=== PATIENT | male | born 1980 | race Caucasian/White ===

== ENCOUNTER → 2016-05-20 | Day surgery (SDC) | payer OTHER ==
[2016-05-15 08:13] VITALS: Ht 182.9 cm; Wt 110.0 kg
[~2016-05-20] VITALS: Ht 182.9 cm; Wt 110.0 kg
[~2016-05-20] MED LIST: ACETAMINOPHEN/CODEINE 300/30MG TAB PO PRN; ASPI325T45 PO; ATROPINE SULFATE 0.1 MG/ML 5ML SYR IV PRN; BUPIVACAINE 0.5 % 5 MG/1 ML MPF 30ML VIAL ONE; CLINDAMYCIN PHOS 150 MG/ML 2 ML VIAL IV SCH; DEXAMETHASONE SOD INJ 4 MG/ML VIAL ONE; EpHEDrine SULFATE INJ 50 MG/ML AMP IV PRN; FENTANYL CITRATE INJ 50 MCG/1 ML 2 ML VIAL ONE; HYDR-5688 PO; LACTATED RINGER'S 1000ML 1,000 ML IV SCH; LIDOCAINE HCL 1% 20 ML VIAL ONE; LIDOCAINE HCL 2% 2 ML VIAL (20MG/ML) ONE; METOCLOPRAMIDE HCL INJ 5 MG/ML 2 ML VIAL IV PRN; MIDAZOLAM HCL 1 MG/ML 2ML VIAL ONE; MoRPHine SULFATE 4 MG/ML 1 ML CARP\\VIAL IV PRN; OMEGCAP2 PO; ONDANSETRON INJ 2 MG/ML 2 ML VIAL IV PRN; ONDANSETRON INJ 2 MG/ML 2 ML VIAL ONE; OXYCODONE/ACETAMINOPHEN 5-325 TAB PO PRN; PROPOFOL IV EMULSION 10 MG/ML 20 ML VIAL IV ONE; SODIUM CHLORIDE 0.9% 1000ML 1,000 ML IV SCH
--- NOTE | 2016-05-20 09:21 | History & Physical Bridge - [place] ---
H&P Re-Evaluation Bridge Note: I have examined the patient, reviewed the History & Physical and in the interval since the performance of the History & Physical I have noted the following changes of clinical significance: No changes noted
--- NOTE | 2016-05-20 10:27 | Discharge Instructions-SurgCtr ---
Discharge Instructions Visit Reason for Visit: Retained Hardware Left Index Finger Discharge Discharge Diagnosis / Problem: Hardware removal left index finger Discharge Goals Goal(s): Decrease discomfort, Improve function, Increase independence Activity Recommendations Activity Limitations: as noted below Lifting Limitations: none (with left hand) Exercise/Sports Limitations: until after follow-up appointment May Resume Sexual Activity: when tolerated Shower/Bathe: keep incision dry Driving or Machine Use: when no longer using narcotic pain medication Anesthesia . Post Anesthesia Instructions: If you have had General Anesthesia or IV Sedation: * Do not drive today. * Resume driving when surgeon permits. * Do not make important decisions or sign legal documents today. * Call surgeon for: 1. Temperature elevations greater than 101 degrees F. 2. Uncontrollable pain. 3. Excessive bleeding. 4. Persistent nausea and vomiting. 5. Medication intolerance (nausea, vomiting or rash). * For nausea and vomiting use only clear liquids such as: tea, soda, bouillon until nausea subsides, then gradually increase diet as tolerated. * If you have any concerns or questions, call your surgeon's office. If physician is unavailable and it is an emergency, call 911 or go to the nearest emergency room. . Instructions / Follow-Up Instructions / Follow-Up DIET: * Resume previous diet. MEDICATIONS: * Please take your prescriptions as instructed at your pre-op appointment and/ or see medication discharge instructions listed above. * If concerns develop, call your physician's office at . SPECIAL CARE INSTRUCTIONS: * Ice/Elevate as instructed. * Keep dressing clean, dry, intact. * Your surgical extremity may be discolored due to prepping agents used on the skin. A bluish-green tint is a normal variant and should not cause alarm. Call your doctor at [phone] if: * Temperature above 101 degrees * Pain not relieved by pain medicine ordered * There is increased drainage or redness from any incision * You have any unanswered questions, problems or concerns. FOLLOW UP VISIT: * If not already scheduled, please call the office at to schedule a follow-up appointment. Diet Recommendations Home Diet: resume previous diet Procedures Procedures Performed: Left Index Finger Open Hardware Removal Pending Studies Studies pending at discharge: no Medical Emergencies . Who to Call and When: Medical Emergencies: If at any time you feel your situation is an emergency, please call 911 immediately. . Non-Emergent Contact Non-Emergency issues call your: Primary Care Provider . . "Provider Documentation" section prepared by Kaiden Gacria. [place] Drug Monitoring Program Search Results: no issues identified
--- NOTE | 2016-05-20 10:29 | [facility] Post Operative Brief Note ---
Immediate Operative Summary Operative Date May 20, 2016. Pre-Operative Diagnosis Retained Hardware Left Index Finger Post-Operative Diagnosis Same Procedure(s) Performed Left Index Finger Open Hardware Removal Surgeon Dr. Oswaldo Ding Hand Stripper Surgeon(s) Dr. Grover Garcia Findings same Specimens None Drains none Anesthesia general Complication(s) None Disposition Recovery Room / PACU
[2016-05-20] MEDS: FENTANYL CITRATE INJ 50 MCG/1 ML 2 ML VIAL IV PRN ×3 (11:28→11:49)
--- NOTE | 2016-05-20 12:04 | Anesthesia Progress Nt - [facility] ---
Anesthesia Post Op Note Date & Time May 20, 2016 at 12:05 Vital Signs Pain Intensity: 6 Vital Signs Past 12 Hours Date Time Temp Pulse Resp B/P Pulse Ox O2 Delivery O2 Flow Rate FiO2 05/20/16 11:54 77 13 05/20/16 11:54 81 13 142/102 98 05/20/16 11:49 66 13 05/20/16 11:49 66 13 148/87 94 05/20/16 11:44 73 18 127/85 95 05/20/16 11:44 73 18 05/20/16 11:39 68 10 05/20/16 11:39 66 10 133/90 100 05/20/16 11:34 67 7 141/89 100 05/20/16 11:34 74 7 05/20/16 11:29 75 10 05/20/16 11:29 69 10 133/91 100 05/20/16 11:24 105 14 05/20/16 11:24 105 14 132/88 98 05/20/16 11:19 68 15 115/66 96 05/20/16 11:19 67 15 05/20/16 11:14 36.7 68 16 125/ 98 Mask 10 05/20/16 11:14 71 17 05/20/16 11:14 70 17 120/74 97 05/20/16 08:35 36.8 93 18 164/100 97 Room Air Notes Mental Status: alert / awake / arousable, participated in evaluation Pt Amnestic to Procedure: Yes Nausea / Vomiting: adequately controlled Pain: adequately controlled Airway Patency, RR, SpO2: stable & adequate BP & HR: stable & adequate Hydration State: stable & adequate Anesthetic Complications: no major complications apparent
[2016-05-20 12:12] VITALS: TEMP 36.7
[2016-05-20 12:49] VITALS: BP 119/72; PULSE 52; O2SAT 96
--- NOTE | 2016-05-20 13:25 | [facility] Post Operative Brief Note ---
Immediate Operative Summary Operative Date May 20, 2016. Pre-Operative Diagnosis Retained Hardware Left Index Finger Post-Operative Diagnosis Same Procedure(s) Performed Left Index Finger Open Hardware Removal Surgeon Dr. Oswaldo Ding Bolt Threader Surgeon(s) Dr. Grover Garcia Estimated Blood Loss 15 CC Specimens None Complication(s) None Disposition PCU
--- NOTE | 2016-05-20 16:43 | [facility] Operative Report ---
Operative Report Operative Date May 20, 2016. Pre-Operative Diagnosis Retained Hardware Left Index Finger Post-Operative Diagnosis Same Procedure(s) Performed Left Index Finger Open Hardware Removal Surgeon Dr. Oswaldo Ding Paper Sales Representative Surgeon(s) Dr. Grover Garcia Estimated Blood Loss 15 CC Findings Retained hardware left index finger Specimens None Drains n/a Anesthesia LMA Complication(s) None Disposition Recovery Room / PACU (stable) Implants n/a Indications The patient is a 35 yo male with a history of previous left index finger open reduction internal fixation, with painful retained hardware. The patient understands the risks of surgery, which include but are not limited to: bleeding , infection, re-operation, damage to nerves and arteries, continued pain, being unable to remove all of the hardware, and fracture. The patient understands all of these instructions and explanations, all of their questions have been satisfactorily addressed. The patient has elected to proceed with surgery and the informed consent was signed. Description of Procedure The patient was taken to the Operating Room and placed in the supine position on the operating table. After general anesthetic was administered a multidisciplinary time-out was performed identifying my initials on the left index finger as the correct and operative limb. Prior to any incisions, 600 mg of intravenous clindamycin was given. The left upper extremity was prepped and draped in the usual Orthopaedic sterile fashion. The patient's previous incision along dorsum of the left index finger was marked. The skin edges were injected with a 50:50 mixture of 1% lidocaine and 0.5 % Marcaine plain as well as performing a digital block in the standard fashion for a total of 8 cc. the skin incision was carried down to the extensor mechanism and medial and lateral flaps created. An incision was made radial to the extensor tendon and carried down to the proximal phalanx and the plate. The plate was further exposed with a [place]. The appropriate screwdriver was used to remove all the screws through the incision except for the most ulnar which a small stab through the extensor expansion. The plate was easily elevated and removed. Any scar tissue overlying the rock small phalanx was debrided with a small rongeur. The wound was copiously irrigated with normal saline. Hemostasis was obtained with electrocautery and compression. The skin were closed with 3-0 nylon in horizontal mattress fashion. The limb was cleaned and dried. The wound was covered Xerofoam, 4 x 4's, ABDs, sterile Rossy evelyn taping to the middle finger, and [place] and. The sponge and needle counts were correct. POST-OP: The patient will follow-up with Dr. Ding in 10-15 days. The patient was given pain medicine. He will not get the wound wet for 3 days. They will start hand therapy in 2-3 days. I attest to the content of the Intraoperative Record and any orders documented therein. Any exceptions are noted below.
== END | disposition home or self-care (01) ==
LOC: X.SURG 08:21
PROVIDERS: ATTEND Orthopaedic Surgery Sports Medicine
DX: T84.84XA Pain due to internal orthopedic prosthetic devices, implants and grafts, initial encounter (principal); Y83.1 Surgical operation with implant of artificial internal device as the cause of abnormal reaction of the patient, or of later complication, without mention of misadventure at the time of the procedure; E66.9 Obesity, unspecified; Z98.890 Other specified postprocedural states; Z88.0 Allergy status to penicillin; Z68.33 Body mass index [BMI] 33.0-33.9, adult